=== PATIENT | male | born 1980 | race Caucasian/White ===

== ENCOUNTER 2017-02-23 22:24 | Emergency (ER) | payer SELFPAY ==
[2017-02-23] MEDS ORDERED: Sodium Chloride 0.9% 2,000 ML IV ONE (22:38)
--- NOTE | 2017-02-23 22:47 | EDM.PDOC ---
ED HPI GENERAL MEDICAL PROBLEM - General Chief Complaint: Gastrointestinal Problem Stated Complaint: AMBULANCE Time Seen by Provider: 02/23/17 23:35 - History of Present Illness INITIAL COMMENTS - FREE TEXT/NARRATIVE: HISTORY AND PHYSICAL: History of present illness: Patient 36-year-old white male presents by ambulance after they respond for male is nauseous vomiting and generalized weakness that got progressively worse after a long bike ride today and he per his grandmother the patient presents diaphoretic somnolent denies drugs alcohol trauma fever chills chest pain shortness of breath or other concern Review of systems: As per history of present illness and below otherwise all systems reviewed and negative. Past medical history: As per history of present illness and as reviewed below otherwise noncontributory. Surgical history: As per history of present illness and as reviewed below otherwise noncontributory. Social history: No reported history of drug or alcohol abuse. Family history: As per history of present illness and as reviewed below otherwise noncontributory. Physical exam: HEENT: Atraumatic, normocephalic, pupils reactive, negative for conjunctival pallor or scleral icterus, mucous membranes dry, throat clear, neck supple, nontender, trachea midline. Lungs: Clear to auscultation, breath sounds equal bilaterally, chest nontender. Heart: S1S2, regular, tachycardic negative for clicks, rubs, or JVD. Abdomen: Soft, nondistended, nontender. Negative for masses or hepatosplenomegaly. Negative for costovertebral tenderness. Pelvis: Stable nontender. Genitourinary: Deferred. Rectal: Deferred. Extremities: Atraumatic, negative for cords or calf pain. Neurovascular unremarkable. Neuro: Somnolent follows commands moves all extremities limited grossly nonfocal exam Diagnostics: CBC CMP troponin and CPK PT/INR UA urine drug screen EtOH chest x-ray EKG CT brain blood culture x2 lactic acid Therapeutics: saline 2 L bolus Impression: #1 vomiting with dehydration #2 heat illness Definitive disposition and diagnosis as appropriate pending reevaluation and review of above. - Related Data Allergies Allergy/AdvReac Type Severity Reaction Status Date / Time No Known Allergies Allergy Verified 02/23/17 22:40 Home Meds: Home Meds . [No Known Home Meds] 02/23/17 [History] ED ROS GENERAL - Review of Systems Review Of Systems: ROS reveals no pertinent complaints other than HPI. ED EXAM, GENERAL - Physical Exam Exam: See Below (See dictation) Course - Vital Signs Text/Narrative:: The patient is more alert awake he does it now is now to using alcohol and methamphetamine. Last Recorded V/S: Last Vital Signs Temp Pulse 70 02/23/17 23:29 Resp 16 02/23/17 23:29 BP 125/88 02/23/17 23:29 Pulse Ox 100 02/23/17 23:29 - Orders/Labs/Meds Orders: Active Orders 24 hr Category Date Time Status EKG Documentation Completion [RC] STAT Care 02/23/17 22:38 Active Chest 1V Frontal [CR] Stat Exams 02/23/17 22:38 Taken Head wo Cont [CT] Stat Exams 02/23/17 22:43 Taken BLOOD GAS ARTERIAL [BG] Stat Lab 02/23/17 22:38 Ordered CULTURE BLOOD [BC] Stat Lab 02/23/17 22:47 Received CULTURE BLOOD [BC] Stat Lab 02/23/17 22:53 Received DRUG SCREEN, URINE [URCHEM] Stat Lab 02/23/17 22:38 Uncollected UA W/MICROSCOPIC [URIN] Stat Lab 02/23/17 22:38 Uncollected Sodium Chloride 0.9% [Normal Saline] 2,000 ml Med 02/23/17 22:38 Active IV .Bolus Blood Culture x2 Reflex Set [OM.PC] Stat Oth 02/23/17 22:38 Ordered Medication Orders Sodium Chloride (Normal Saline) 2,000 mls @ 999 mls/hr IV .Bolus ONE Stop: 02/24/17 00:38 Last Admin: 02/23/17 22:44 Dose: 999 mls/hr Labs: Laboratory Tests 02/23/17 02/23/17 Range/Units 22:47 22:47 WBC 7.64 (4.0-11.0) K/uL RBC 5.17 (4.50-5.90) M/uL Hgb 15.1 (13.0-17.0) g/dL Hct 44.1 (38.0-50.0) % MCV 85.3 (80.0-98.0) fL MCH 29.2 (27.0-32.0) pg MCHC 34.2 (31.0-37.0) g/dL RDW Std Deviation 41.3 (28.0-62.0) fl RDW Coeff of Polina 13 (11.0-15.0) % Plt Count 339 (150-400) K/uL MPV 10.00 (7.40-12.00) fL Neut % (Auto) 51.2 (48.0-80.0) % Lymph % (Auto) 37.2 (16.0-40.0) % [place] % (Auto) 8.6 (0.0-15.0) % Eos % (Auto) 2.1 (0.0-7.0) % Baso % (Auto) 0.9 (0.0-1.5) % Neut # (Auto) 3.9 (1.4-5.7) K/uL Lymph # (Auto) 2.8 H (0.6-2.4) K/uL [place] # (Auto) 0.7 (0.0-0.8) K/uL Eos # (Auto) 0.2 (0.0-0.7) K/uL Baso # (Auto) 0.1 (0.0-0.1) K/uL Nucleated RBC % 0.0 /100WBC Nucleated RBCs # 0 K/uL Sodium 145 (136-146) mmol/L Potassium 3.6 (3.5-5.1) mmol/L Chloride 108 (98-110) mmol/L Carbon Dioxide 21 (21-31) mmol/L BUN 19 (6.0-23.0) mg/dL Creatinine 1.5 (0.6-1.5) mg/dL Est Cr Clr Drug Dosing TNP Estimated GFR (MDRD) 52.4 ml/min Glucose 146 H (60-110) mg/dL Calcium 9.4 (8.8-10.8) mg/dL Total Bilirubin 0.3 (0.1-1.5) mg/dL AST 26 (5-40) IU/L ALT 27 (8-54) IU/L Alkaline Phosphatase 74 (40-150) Creatine Kinase 177 (9-236) IU/L Total Protein 8.2 H (6.0-8.0) g/dL Albumin 4.8 (3.5-5.0) g/dL Globulin 3.4 (2.0-3.5) g/dL Albumin/Globulin Ratio 1.4 (1.3-2.8) Ethyl Alcohol 165.5 mg/dL Meds: Medications Generic Name Dose Route Start Last Admin Trade Name Lex PRN Reason Stop Dose Admin Sodium Chloride 2,000 mls @ 999 mls/hr 02/23/17 22:38 02/23/17 22:44 Normal Saline IV 02/24/17 00:38 999 mls/hr .Bolus ONE Administration Departure - Departure Time of Disposition: 23:34 Disposition: Home, Self-Care 01 Condition: good Clinical Impression: Dehydration, Polysubstance abuse - Discharge Information Forms: ED Department Discharge Additional Instructions: The following information is given to patients seen in the emergency department who are being discharged to home. This information is to outline your options for follow-up care. We provide all patients seen in our emergency department with a follow-up referral. The need for follow-up, as well as the timing and circumstances, are variable depending upon the specifics of your emergency department visit. If you don't have a primary care physician on staff, we will provide you with a referral. We always advise you to contact your personal physician following an emergency department visit to inform them of the circumstance of the visit and for follow-up with them and/or the need for any referrals to a consulting specialist. The emergency department will also refer you to a specialist when appropriate. This referral assures that you have the opportunity for followup care with a specialist. All of these measure are taken in an effort to provide you with optimal care, which includes your followup. Under all circumstances we always encourage you to contact your private physician who remains a resource for coordinating your care. When calling for followup care, please make the office aware that this follow-up is from your recent emergency room visit. If for any reason you are refused follow-up, please contact the [facility] emergency department at and asked to speak to the emergency department charge nurse. [facility] [address] [place] [phone] Stop using drugs and alcohol push fluids clear liquids in 24 hours followup primary medical doctor and/or clinic above is discussed return as needed as discussed - My Orders Last 24 Hours: My Active Orders 02/23/17 22:38 EKG Documentation Completion [RC] STAT Chest 1V Frontal [CR] Stat BLOOD GAS ARTERIAL [BG] Stat DRUG SCREEN, URINE [URCHEM] Stat UA W/MICROSCOPIC [URIN] Stat Sodium Chloride 0.9% [Normal Saline] 2,000 ml IV .Bolus Blood Culture x2 Reflex Set [OM.PC] Stat 02/23/17 22:43 Head wo Cont [CT] Stat 02/23/17 22:47 CULTURE BLOOD [BC] Stat 02/23/17 22:53 CULTURE BLOOD [BC] Stat - Assessment/Plan Last 24 Hours: My Active Orders 02/23/17 22:38 EKG Documentation Completion [RC] STAT Chest 1V Frontal [CR] Stat BLOOD GAS ARTERIAL [BG] Stat DRUG SCREEN, URINE [URCHEM] Stat UA W/MICROSCOPIC [URIN] Stat Sodium Chloride 0.9% [Normal Saline] 2,000 ml IV .Bolus Blood Culture x2 Reflex Set [OM.PC] Stat 02/23/17 22:43 Head wo Cont [CT] Stat 02/23/17 22:47 CULTURE BLOOD [BC] Stat 02/23/17 22:53 CULTURE BLOOD [BC] Stat
[2017-02-23 23:18] LABS: CHLORIDE,CL 108 mmol/L (98-110); SODIUM,NA 145 mmol/L (136-146)
[2017-02-24 00:40] VITALS: BP 120/80
--- NOTE | 2017-02-24 11:08 | CT ---
EXAM DATE: 02/23/17 PATIENT'S AGE: 36 Patient: RAMBO FRANKLIN Facility: [place], [place] Site . Site : 1980 Study: CT Head WO CONT [id number]/1/2017 11:09:28 PM Ordering Physician: Doctor Cain Final Report: INDICATION: WEAKNESS, NAUSEA, VOMITING TECHNIQUE: CT Head without contrast. COMPARISON: None. FINDINGS: There is no sign of intracranial hemorrhage or mass effect. Ventricles and sulci are symmetric and midline. The amaya-white differentiation is preserved. No abnormal intra-axial or extra-axial fluid collection. No acute disease of the visualized paranasal sinuses and mastoid air cells. No fracture evident. No scalp hematoma/laceration. IMPRESSION: No acute intracranial process. Dictated by: oRn Chavarria MD @ 02/23/2017 23:13:00 (Electronic Signature) Report Signed by Proxy. [facility]AN[facility]
--- NOTE | 2017-02-24 11:09 | CR ---
EXAM DATE: 02/23/17 PATIENT'S AGE: 36 Patient: RAMBO FRANKLIN Facility: [place], [place] Site . Site : 1980 Study: XRay Chest [id number]/1/2017 11:09:53 PM Ordering Physician: Doctor Cain Final Report: INDICATION: Weakness, nausea, vomiting. TECHNIQUE: Chest radiograph 1 view COMPARISON: None FINDINGS: Cardiovascular and mediastinum: The heart silhouette is normal in size and morphology. The mediastinum is normal in appearance. Lungs and pleural spaces: Both lungs are unremarkable in appearance. No sign of pleural effusion seen. No pneumothorax is identified. Bones and soft tissues: No significant findings. IMPRESSION: 1. No acute cardiopulmonary disease is seen. Dictated by Jesus Ashton MD @ 02/23/2017 11:13:26 PM Dictated by: Jesus Ashton MD @ 02/23/2017 23:13:32 (Electronic Signature) Report Signed by Proxy. [facility]
== END 2017-02-24 00:10 | disposition home or self-care (01) ==
LOC: MW.ED 22:24
DX: T67.5XXA Heat exhaustion, unspecified, initial encounter (principal); E86.0 Dehydration; F19.10 Other psychoactive substance abuse, uncomplicated
CPT/HCPCS: 36415; 70450; 71010; 80053; 82550; 85025; 87040; 96360; 99285; G0480; J7040; 99282

== ENCOUNTER 2022-09-17 11:00 | Emergency (ER) | payer SELFPAY | END 2022-09-17 11:17 | LOC: MW.ED 11:00 | DX: Z02.89 Encounter for other administrative examinations (principal) | CPT/HCPCS: 99283 ==

== ENCOUNTER 2023-09-05 15:28 | Emergency (ER) | payer MEDICAID | END 2023-09-05 16:00 | disposition home or self-care (01) | LOC: MW.ED 15:28 | DX: Z02.89 Encounter for other administrative examinations (principal) | CPT/HCPCS: 99281; 99283 ==

== ENCOUNTER 2023-11-01 13:23 | Emergency (ER) | payer MEDICAID ==
[2023-11-01 14:12] LABS: BASOPHILS ABSOLUTE AUTO 0.07 K/uL (0.00-0.20); BASOPHILS PERCENT AUTO 1.1 % (0.0-1.0); EOSINOPHILS ABSOLUTE AUTO 0.13 K/uL (0.00-0.45); HEMATOCRIT 44.5 % (42.0-52.0); HEMOGLOBIN 15.2 g/dL (14.0-18.0); IMMATURE GRAN ABSOLUTE AUTO 0.02 K/uL (0.00-0.05); IMMATURE GRAN PERCENT AUTO 0.3 % (0.0-0.4); LYMPHOCYTES ABSOLUTE AUTO 1.74 K/uL (1.00-4.80); LYMPHOCYTES PERCENT AUTO 26.4 % (24.0-44.0); MEAN CORPUSCULAR HEMOGLOBIN 28.1 pg (28.0-32.0); MEAN CORPUSCULAR HGB CONC 34.2 g/dL (32.0-36.0); MEAN CORPUSCULAR VOLUME 82.3 fL (83.0-99.0); MEAN PLATELET VOLUME 9.7 fL (9.4-12.4); MONOCYTES PERCENT AUTO 9.1 % (0.0-8.0); NEUTROPHILS ABSOLUTE AUTO 4.03 K/uL (1.80-7.70); NEUTROPHILS PERCENT AUTO 61.1 % (41.0-71.0); PLATELET COUNT,PLT 350 K/uL (150-400); RED BLOOD CELL COUNT 5.41 M/uL (4.52-5.90); WHITE BLOOD CELL COUNT,WBC 6.59 K/uL (3.9-11.3)
[2023-11-01 14:40] LABS: A/G RATIO 0.9 (0.9-1.6); ALANINE AMINOTRANSFERASE,ALT 39 IU/L (14-63); ALBUMIN 3.7 g/dL (3.4-5.0); ALKALINE PHOSPHATASE 78 U/L (46-116); ASPARTATE AMNIOTRANSFERASE,AST 27 IU/L (15-37); BILIRUBIN TOTAL 0.2 mg/dL (0.2-1.0); BLOOD UREA NITROGEN,BUN 15 mg/dL (7.0-18.0); CALCIUM 9.3 mg/dL (8.5-10.1); CARBON DIOXIDE,CO2 27.5 mmol/L (21.0-32.0); CHLORIDE,CL 105 mmol/L (98-107); CREATININE 1.1 mg/dL (0.8-1.3); ESTIMATED GFR 84 mL/min (>60); GLUCOSE RANDOM 91 mg/dL (74-106); POTASSIUM,K 4.2 mmol/L (3.5-5.1); PROTEIN TOTAL,TP 7.9 g/dL (6.4-8.2); SODIUM,NA 142 mmol/L (136-148)
[2023-11-01] MEDS ORDERED: Metoprolol Tartrate 5 MG in Sodium Chloride 0.9% 50 ML IV ONE (14:40)
[2023-11-01] MEDS: Metoprolol Tartrate 5 MG/5 ML SDV IVPUSH ONE ×3 (14:46→15:30)
[2023-11-01] MEDS: Sodium Chloride 0.9% 1,000 ML IV STA ×2 (14:47→16:32)
[2023-11-01] MEDS: Metoprolol Tartrate 5 MG in Sodium Chloride 0.9% 50 ML IV ONE (14:57)
== END 2023-11-01 17:39 | disposition home or self-care (01) ==
LOC: MW.ED 13:23
DX: R07.2 Precordial pain (principal); I48.91 Unspecified atrial fibrillation; E78.00 Pure hypercholesterolemia, unspecified; Z79.899 Other long term (current) drug therapy
CPT/HCPCS: 36415; 71046; 80053; 84484; 85025; 85379; 93005; 96374; 96376; 99285; J3490; J7030; 93010; 99284